=== PATIENT | female | born 1990 | race African-American/Black ===

== ENCOUNTER 2017-02-22 06:27 | Inpatient (IN) ==
[2017-02-22] MEDS ORDERED: ONDANSETRON 4 MG/2 ML VIAL IV PRN ×2 (06:44→17:33)
[2017-02-22] MEDS ORDERED: MEPERIDINE 50 MG/1 ML VIAL IV PRN (06:44)
[2017-02-22] MEDS ORDERED: ACETAMINOPHEN 325 MG TABLET PO PRN ×2 (06:44→17:33)
[2017-02-22] MEDS ORDERED: BUTORPHANOL 2 MG/ML VIAL IV PRN (06:44)
[2017-02-22] MEDS: LACTATED RINGERS 1,000 ML IV SCH ×3 (07:32→18:50)
[2017-02-22 07:45] LABS: Basophils % 0.2 % (0.0-0.8); Eosinophils % 0.6 % (0.00-10.9); Hematocrit 30.2 VOL% (35.7-47.0); Hemoglobin 9.8 GM/DL (12.0-16.0); Immature Granulocytes % 0.4 %; Immature Granulocytes Absolute 0.02 #; Lymphocytes # 1.5 10*3/uL (1.4-4.0); Lymphocytes % 28.8 % (21.3-54.2); Mean Corpuscular HGB Conc 32.5 GM/DL (32-36); Mean Corpuscular Hemoglobin 28 PG (27-34); Mean Corpuscular Volume 86.5 FL (87-102); Mean Platelet Volume 10.7 FL (9.6-12.0); Monocytes # 0.5 10*3/uL (0.11-0.8); Neutrophils # 3.1 10*3/uL (1.4-7.4); Platelet Count 225 T/CUMM (130-400); Red Blood Count 3.49 MC/CUMM (3.8-5.5); Red Cell Distribution Width 12.9 % (9.3-17.3); White Blood Count 5.2 T/CUMM (4-12)
[2017-02-22] MEDS ORDERED: OXYTOCIN/LR 20 UNIT/1,000 ML BAG IV SCH (08:00)
--- NOTE | 2017-02-22 09:11 | OB/GYN History & Physical ---
History of Present Illness Chief complaint: In for elective induction of labor due to term History of present illness: Ms. Salcedo is a 26 year old female who is a primigravida. Her REMIGIO is 2014 for an estimated gestational age of 39 weeks and 1 day. The patient presents for elective induction of labor due to term . The risk and benefits has been thoroughly discussed with this patient and significant other, plan of care has been discussed with Dr. Clifton and all parties are in agreement with plan. Patient received her care at the [facility] and she received routine care, her course was uneventful. labs she is O+, rubella is immune, RPR is nonreactive hepatitis B negative, HIV negative, GBS culture negative. Review of systems is negative with exception of above. Home Medications Medication Instructions Recorded Confirmed Type Pediatric Multivitamin No.101 1 tablet PO DIRECTED 01/29/17 02/22/17 History [Gummy] NIFEdipine CAP [Procardia] 1 tablet PO Q6HR 02/22/17 02/22/17 History Allergies Allergy/AdvReac Type Severity Reaction Status Date / Time No Known Allergies Allergy Verified 02/22/17 07:53 12 point system: reviewed and no additional remarkable complaints except as stated Medical,Surgical,& Family Hx - Medical History Medical History: noncontributory Reproductive: History of: Abnormal Pap Smear, Sexually Transmitted Disorders ( History of chlamydia) - Family History Family History: Reports;: Family Cancer (bothe sides), Family Diabetes (mother and father), Family Heart Disease (bothe sides mother and father), Family Hypertension (mother and father), Family Stroke (p aunt) Denies;: Family Anesthesia Reaction, Family Hematology, Family Psychiatric Problems, Additional Family History - Social History Smoking Status: Never smoker Frequency of Alcohol Use: None Type of Drug Use: None Marital Status: Single Lives With:: Significant Other Functional capacity: independent ambulation Exam ASSISTANT REAL ESTATE MANAGER - Constitutional Vitals: Vital Signs Temp Pulse Resp BP Pulse Ox 02/22/17 06:54 98.2 F 94 H 20 125/79 100 General appearance: no acute distress - Antepartum / Post Antepartum Exam Cervix - Dilatation: 3 cm Effacement: 80% Station: -2 Rupture: Intact Presentation: Vertex Heart Rate: 150 Breast: bilateral: normal Abdomen obstetrics: Present: bowel sounds normal Vagina: Present: normal moisture Uterus exam: Present: enlarged Anus/Rectum: Present: normal perianal skin - Head Head exam: Present: normal inspection - Respiratory Respiratory exam: Present: clear to auscultation bilaterally - Cardiovascular Cardiovascular exam: Present: regular rate and rhythm - GI/Abdominal GI/Abdominal exam: Present: normal bowel sounds, soft - Back Exam Back exam: Present: normal inspection - Neurological Exam Neurological exam: Present: alert, oriented X3 - Psychiatric Psychiatric exam: Present: normal affect, normal mood Assessment and Plan (1) 39 weeks gestation of Status: Acute Assessment and plan: Admit IV fluids IV Pitocin per protocol Artificial rupture membranes when appropriate Internal monitors if indicated Epidural anesthesia if desired Anticipate Current Visit: Yes Results - Labs CBC & BMP: 02/22/17 07:30
[2017-02-22] MEDS ORDERED: LACTATED RINGERS 1,000 ML IV ONE (09:35)
[2017-02-22] MEDS ORDERED: FAMOTIDINE 20 MG/2 ML VIAL IV ONE (09:35)
[2017-02-22] MEDS ORDERED: hydrOXYzine HCL 25 MG/1 ML VIAL IM PRN (09:35)
[2017-02-22] MEDS ORDERED: CITRIC ACID/SODIUM CITRATE 30 ML UDCUP PO ONE (09:35)
[2017-02-22] MEDS ORDERED: diphenhydrAMINE 50 MG/1 ML VIAL IV PRN ×2 (09:35)
[2017-02-22] MEDS ORDERED: PROMETHAZINE 25 MG/1 ML VIAL IM ONE (09:35)
[2017-02-22] MEDS ORDERED: ePHEDrine 50 MG/ML AMP IV PRN (09:35)
[2017-02-22] MEDS ORDERED: fentaNYL 2 MCG/ROPIV 0.2% EPID 150 ML EPIDURAL SCH (09:35)
[2017-02-22] MEDS ORDERED: ONDANSETRON 4 MG/2 ML VIAL IV ONE (09:35)
[2017-02-22 15:26] LABS: Apearance,Urine CLEAR (Clear); Bilirubin,Urine Negative (Negative); Blood, Urine Negative (Negative); Glucose,Urine (UA) Negative (Negative); Hyaline Casts,Urine 1 /LPF (0-3); Ketones,Urine 80 mg/dL (Negative); Mucus,Urine Many /LPF (Occasional); Nitrite,Urine Negative (Negative); Protein,Urine 30 MG/DL; RBC,Urine 1 /HPF (0-4); Squamous Epithelial Cell,Urine Occasional /HPF (0-10); Urine Color Yellow (Yellow); Urine Specific Gravity 1.019 (1.001-1.035); WBC,Urine 2 /HPF (0-6)
--- NOTE | 2017-02-22 17:32 | Event Note ---
Delivery note Stage I of labor IV Pitocin Delivery note Stage I of labor Admitted once later dilated IV Pitocin was initiated Epidural was administered, and instituted again because of the ineffectiveness of the first epidural. heart tones were category 1, at the end of the first stage of labor multiple variable decelerations suggesting the possibility of head compression. Fetus was occiput posterior, with noticeable cvaput An IUPC, scalp electrode was used to monitor the labor pattern. Oxygen by mask Stage II of labor At approximately +2 station with caput, and LML episiotomy was made. Patient was extremely exhausted from pushing. The IUPC and the scalp electrode was removed. heart tones demonstrated good variability at approximately 105 ,115 bpm. The external monitor was reapplied to the patient's abdomen. The patient was instructed to grab her legs and pull them behind her knees toward her chest. She was informed that this would increase the diameter of the pelvis. And she was also instructed to push when the command was made. Vacuum extraction was applied and the pressure was within the normal limits. 1 application was made and the head was delivered in the occiput posterior position and then rotated to the right. The naris was suctioned there was no cord noted. The nurses at this time applied suprapubic pressure. I removed myself from the stool and placed one knee on the floor and gentle traction was applied in a downward, steady projection. The anterior shoulder was delivered. Then the posterior shoulder was also delivered. There was no evidence of any resistance in delivering the anterior right shoulder. Cord gas was obtained, and cord blood was also obtained. Apgars were 7 at 1 minute and 8 at 5 minutes. weight was 7 pounds and 8 ounces. Female . Delivery time was 1636. Stage III Placenta was delivered 3 cord vessels Estimated blood loss was 300 cc The LML episiotomy is repaired with #2-0 Vicryl and 3-0 chromic The was taken to the nursery in stable condition
[2017-02-22] MEDS ORDERED: WITCH HAZEL PADS 100/JAR TOP PRN (17:33)
[2017-02-22] MEDS ORDERED: OXYTOCIN/LR 20 UNIT/1,000 ML BAG IV ONE (17:33)
[2017-02-22] MEDS ORDERED: BENZOCAINE 20%/MENTHOL 0.5% SPRAY 56 GM CAN TOP PRN (17:33)
[2017-02-22] MEDS ORDERED: RHO(D) IMMUNE GLOBULIN 300 MCG SYRINGE IM ONE (17:33)
[2017-02-22] MEDS ORDERED: DIPH/TET/ACEL PERT BOOSTER VACCINE 0.5 ML VIAL IM ONE (17:33)
[2017-02-22] MEDS ORDERED: HYDROCORTISONE 2.5% RECTAL CREAM 30 GM TUBE TOP PRN (17:33)
[2017-02-22] MEDS ORDERED: MEASLES/MUMPS/RUBELLA VACCINE 0.5 ML VIAL SUBCUT ONE (17:33)
[2017-02-22] MEDS ORDERED: BISACODYL 10 MG SUPP RECTAL PRN (17:33)
[2017-02-22] MEDS ORDERED: LANOLIN 50% CREAM 0.3 OZ TUBE TOP PRN (17:33)
[2017-02-22 18:04] LABS: Cord Arterial Blood HCO3 16.8 MMOL/L
[2017-02-22 18:07] LABS: Cord Venous Blood HCO3 19.8 MMOL/L; Cord Venous Blood PCO2 48.1 MMHG; Cord Venous Blood PO2 25.1
[2017-02-22] MEDS: IBUPROFEN 800 MG TABLET PO PRN (19:30)
[2017-02-22] MEDS: oxyCODONE/ACETAMINOPHEN 5-325 MG TABLET PO PRN (20:25)
[2017-02-22] MEDS: DOCUSATE SODIUM 100 MG CAPSULE PO SCH (21:55)
[2017-02-23 05:03] LABS: Basophils % 0.2 % (0.0-0.8); Eosinophils % 0.3 % (0.00-10.9); Hematocrit 25.1 VOL% (35.7-47.0); Hemoglobin 8.2 GM/DL (12.0-16.0); Immature Granulocytes % 0.4 %; Immature Granulocytes Absolute 0.04 #; Lymphocytes # 1.2 10*3/uL (1.4-4.0); Lymphocytes % 10.9 % (21.3-54.2); Mean Corpuscular HGB Conc 32.7 GM/DL (32-36); Mean Corpuscular Hemoglobin 28 PG (27-34); Mean Corpuscular Volume 85.7 FL (87-102); Mean Platelet Volume 11.1 FL (9.6-12.0); Monocytes % 9.1 % (1.7-12.7); Neutrophils # 8.4 10*3/uL (1.4-7.4); Neutrophils % 79.1 % (38.7-73.9); Platelet Count 187 T/CUMM (130-400); Red Blood Count 2.93 MC/CUMM (3.8-5.5); White Blood Count 10.7 T/CUMM (4-12)
[2017-02-23] MEDS: IBUPROFEN 800 MG TABLET PO PRN ×2 (06:17→19:15)
[2017-02-23] MEDS: oxyCODONE/ACETAMINOPHEN 5-325 MG TABLET PO PRN ×2 (06:18→19:18)
--- NOTE | 2017-02-23 10:24 | OB/GYN Progress Note ---
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 Bonding well with . Exam ASSEMBLY PRESS OPERATOR - Constitutional Vitals: Vital Signs Temp Pulse Resp BP Pulse Ox 02/23/17 08:00 97.3 F L 64 18 122/83 02/23/17 06:49 18 02/23/17 06:00 18 02/23/17 05:00 18 02/23/17 03:53 98.2 F 74 18 142/73 02/23/17 02:43 18 02/23/17 02:00 18 02/23/17 01:00 19 02/22/17 23:56 98.3 F 84 18 141/74 02/22/17 23:00 18 02/22/17 22:00 18 02/22/17 21:00 18 02/22/17 19:52 97.6 F 77 18 134/86 02/22/17 19:00 73 20 138/86 02/22/17 12:00 97.2 F L 60 22 165/74 100 General appearance: no acute distress - Antepartum / Post Post Exam Breast: bilateral: normal Abdomen obstetrics: Present: bowel sounds normal Vagina: Present: normal moisture, discharge (Light lochia rubra) Uterus exam: Present: enlarged (Fundus firm and midline) Anus/Rectum: Present: normal perianal skin - Respiratory Respiratory exam: Present: clear to auscultation bilaterally - Cardiovascular Cardiovascular exam: Present: regular rate and rhythm - GI/Abdominal GI/Abdominal exam: Present: normal bowel sounds, soft - Extremities Exam Extremities exam: Present: normal inspection - Neurological Exam Neurological exam: Present: alert, oriented X3 - Psychiatric Psychiatric exam: Present: normal affect, normal mood - Skin Skin exam: Present: normal color, warm Results - Labs CBC & BMP: 02/23/17 03:14
[2017-02-23] MEDS: FERROUS SULFATE 325 MG TABLET PO SCH (20:56)
[2017-02-23] MEDS: DOCUSATE SODIUM 100 MG CAPSULE PO SCH (20:56)
[2017-02-24] MEDS: DOCUSATE SODIUM 100 MG CAPSULE PO SCH ×2 (02:18→08:50)
[2017-02-24] MEDS: FERROUS SULFATE 325 MG TABLET PO SCH ×2 (02:18→08:50)
[2017-02-24] MEDS ORDERED: INFLUENZA VIRUS VACCINE 0.5 ML SYRINGE IM ONE (07:41)
[2017-02-24] MEDS: oxyCODONE/ACETAMINOPHEN 5-325 MG TABLET PO PRN ×2 (08:51→15:53)
[2017-02-24 09:35] VITALS: BP 95/56
--- NOTE | 2017-02-24 11:02 | Discharge Summary ---
Hospital Course - Hospital Course Hospital Course: day #2 Status post vaginal Physical exam is unremarkable, uterus is firm, nontender. Extremities well with no limits neurologic grossly intact Assessment plan DC today, follow-up in our office in 6 weeks. This patient be sent home with appropriate analgesic for her care Specialty Discharge - Follow Up or Referrals Follow up with: Bonnie Clifton MD [Physician] - 03/29/17 9:30 am Discharge Plan - Discharge Data Condition at Discharge: Stable Discharge Diet: advance to your usual diet Activity: resume usual activities as tolerated Hygiene: may shower Weight Bearing at Discharge: full weight bearing Driving: no restrictions Contact your physician if you experience:: fever over 101, Bleeding - Discharge Medications New Ibuprofen Tab [Motrin Tab] 800 mg PO Q6H PRN #30 tablet PRN Reason: Pain Moderate (4-7) Ferrous Sulfate Tab [Feosol Original Tab] 325 mg PO BID #60 tablet oxyCODONE/ACETAMINOPHEN 5-325 [Percocet 5-325] 1 tablet PO Q6H PRN #30 tablet PRN Reason: Pain Severe (8-10) No Action Pediatric Multivitamin No.101 [Gummy] 1 tablet PO DIRECTED NIFEdipine CAP [Procardia] 1 tablet PO Q6HR - Follow Up or Referral Follow Up: Bonnie Clifton MD [Physician] - 03/29/17 9:30 am - Forms/Instructions Instructions: Perineal Care (DC), Vaginal Delivery (DC), Bleeding (DC) Exam - Constitutional Vitals: Period Temp Pulse Resp BP Sys/Prasad Pulse Ox Last 24 Hr 97.2 F-98.4 F 68-83 18-20 95-128/56-73 96-100 DS: Provider Date of admission: 02/22/17 06:44 Primary care physician: . No PCP Attending physician on admission: Bonnie Clifton MD Consults: 02/22/17 17:33 Consult to Packing House Supervisor [CONS] Routine Consult Packing House Supervisor: Breast Feeding Discharging clinician: Bonnie Clifton MD
== END 2017-02-24 18:30 | disposition home or self-care (01) | DRG 775 ==
LOC: N.LDOUT 06:27 → N.LD 06:31 → N.OB 02-23 15:19
PROVIDERS: ADMIT Obstetrics & Gynecology; ATTEND Obstetrics & Gynecology